=== PATIENT | male | born 1980 | race Caucasian/White ===

== ENCOUNTER 2024-08-26 02:47 | Outpatient (CLI) | payer OTHER, SELFPAY ==
[2024-08-26 13:04] LABS: ALT 34 U/L (16-63); AST 21 U/L (15-37); Alkaline Phosphatase 60 U/L (46-116); Anion Gap 8.2 mmol/L (3-11); BUN 15 mg/dL (7-18); Bilirubin, Total 0.69 mg/dL (0.2-1.0); CO2 28.8 mmol/L (21.0-32.0); CREATININE 0.9 mg/dL (0.70-1.30); Calcium 9.1 mg/dL (8.5-10.1); Calculated LDL 116 mg/dL (<100); Chloride 104 mmol/L (98-107); Cholesterol 203 mg/dL (<200); Estimated GFR 108.01 (mL/min/1.73m2); Glucose 102 mg/dL (74-106); HDL Cholesterol 78 mg/dL (40-60); Potassium 3.9 mmol/L (3.5-5.1); Sodium 141 mmol/L (136-145); Total Protein 7.6 g/dL (6.4-8.2); Triglyceride 47 mg/dL (<150)
[2024-08-26 14:08] LABS: Hemoglobin A1C 5.2 % (<5.7)
== END 2024-08-26 02:48 | disposition home or self-care (01) ==
LOC: LOS 02:48
PROVIDERS: PCP Nurse Practitioner Family; Visit Provider Nurse Practitioner Family
DX: Z13.1 Encounter for screening for diabetes mellitus (principal); Z13.220 Encounter for screening for lipoid disorders; Z00.00 Encounter for general adult medical examination without abnormal findings
CPT/HCPCS: 36415; 80053; 80061; 83036